=== PATIENT | male | born 1960 | race African-American/Black ===

== ENCOUNTER 2019-04-03 06:25 | Emergency (ER) | payer BC ==
[~2019-04-03] VITALS: Ht 167.6 cm; Wt 85.7 kg
[~2019-04-03 06:25] MED LIST: HYDR-2761 PO
[2019-04-03] MEDS ORDERED: LABETALOL 20 MG/4 ML DISP.SYRIN. IVP ONE (07:45)
[2019-04-03 07:58] LABS: BASO % 1 % (0-3); EOS # 0.1 x10^3/uL (0.0-0.7); EOS % 2 % (0-3); HEMOGLOBIN 14.3 g/dL (13.0-17.5); LYMPH # 0.8 x10^3/uL (1.0-4.8); LYMPH % 15 % (24-48); MEAN CORPUSCULAR HEMOGLOBIN 33 pg (25-35); MEAN CORPUSCULAR HGB CONC 34 g/dL (31-37); MEAN CORPUSCULAR VOLUME 95 fL (79-100); MONO # 0.5 x10^3/uL (0.0-1.1); MONO % 10 % (0-9); NEUT # 3.6 x10^3uL (1.8-7.7); NEUT % 72 % (31-73); PLATELET COUNT 173 x10^3/uL (140-400); RED BLOOD COUNT 4.41 x10^6/uL (4.30-5.70); RED CELL DISTRIBUTION WIDTH 14.3 % (11.5-14.5)
[2019-04-03 08:15] LABS: CALCIUM 8.4 mg/dL (8.5-10.1); GFR 92.5
[2019-04-03] MEDS ORDERED: LIDOCAINE 2% 20 ML VIAL. IJ ONE (08:15)
[2019-04-03] MEDS ORDERED: COLC0.6T34 PO (08:22)
--- NOTE | 2019-04-03 08:22 | PHYS DOC ---
Past Medical History Past Medical History: Hypertension, Other Additional Past Medical Histor: heavy drinker Past Surgical History: Other Additional Past Surgical Histo: L knee sx Alcohol Use: Occasionally Drug Use: None Adult General Chief Complaint Chief Complaint: ANKLE PROBLEM HPI HPI 58-year-old male presenting to the emergency pertinent today with right ankle pain primarily. He states he does have bilateral ankle pain but his primary complaint is the right ankle. He has a history of gout and reports this is similar to his previous gout flares. The pain is sharp shooting pain that is worse with walking. Review of systems is negative for chest pain shortness of breath abdominal pain nausea or vomiting. All other review of systems is negative. ED course: 88-year-old male presenting the emergency pertinent today with right ankle pain with history of gout. On examination he has mild pain with passive range of motion of the right ankle. It is mildly warm to touch with mild erythema around the ankle. I had a long risk-benefit discussion with the patient about arthrocentesis to exclude septic arthritis from the differential. He would like to proceed with arthrocentesis. The procedure was performed however unfortunately were unable to get fluid off of the joint to analyze synovial fluid. Given his history of gout and the appearance of the wound it is more consistent with gout and septic arthritis. We will give him colchicine and have him follow up with his doctor in 1-2 days. He is to return to the emergency department with the development of a fever or worsening pain or redness in the joint. Of note he also had a significantly elevated blood pressure in the emergency department. He is asymptomatic from his blood pressure otherwise. Initially was 220 systolic then 210 after repeat check. We give the patient IV labetalol and her some basic labs. final bp was mid 190 systolic range. Blood work shows normal CBC. Chemistry panel shows mildly elevated bilirubin otherwise unremarkable. Current Medications Current Medications Current Medications Medications (Trade) Dose Ordered Sig/Brayan Start Time Stop Time Status Last Admin Dose Admin Labetalol HCl (Normodyne Iv Push) 10 mg 1X ONCE 04/03/19 07:45 04/03/19 07:46 DC 04/03/19 08:19 10 MG Lidocaine HCl 10 ml 1X ONCE 04/03/19 08:15 04/03/19 08:16 DC 04/03/19 07:56 10 ML Allergies Allergies Allergies Coded Allergies Type Severity Reaction Last Updated Verified No Known Drug Allergies 01/13/15 No Physical Exam Physical Exam Constitutional: Well developed, well nourished, no acute distress, non-toxic appearance. [] HENT: Normocephalic, atraumatic, bilateral external ears normal, oropharynx moist, no oral exudates, nose normal. [] Eyes: PERRLA, EOMI, conjunctiva normal, no discharge. [] Neck: Normal range of motion, no tenderness, supple, no stridor. [] Cardiovascular:Heart rate regular rhythm, no murmur [] Lungs & Thorax: Bilateral breath sounds clear to auscultation [] Abdomen: Bowel sounds normal, soft, no tenderness, no masses, no pulsatile masses. [] Skin: Warm, dry, no erythema, no rash. [] Back: No tenderness, no CVA tenderness. [] Extremities: The patient's right ankle joint is swollen with mild erythema with passive range of motion pain. Otherwise the knee and foot are nontender. His left ankle has mild pain with passive range of motion but is not warm to touch and not erythe matous near the joint. The extremities are neurovascularly intact. Neurologic: Alert and oriented X 3, normal motor function, normal sensory function, no focal deficits noted. [] Psychologic: Affect normal, judgement normal, mood normal. [] Current Patient Data Vital Signs Vital Signs Date Time Temp Pulse Resp B/P (MAP) Pulse Ox O2 Delivery O2 Flow Rate FiO2 04/03/19 08:19 66 205/109 04/03/19 07:07 99.0 18 95 Room Air 99.0 Lab Values Laboratory Tests Test 04/03/19 07:46 White Blood Count 5.0 x10^3/uL (4.0-11.0) Red Blood Count 4.41 x10^6/uL (4.30-5.70) Hemoglobin 14.3 g/dL (13.0-17.5) Hematocrit 42.0 % (39.0-53.0) Mean Corpuscular Volume 95 fL (79-100) Mean Corpuscular Hemoglobin 33 pg (25-35) Mean Corpuscular Hemoglobin Concent 34 g/dL (31-37) Red Cell Distribution Width 14.3 % (11.5-14.5) Platelet Count 173 x10^3/uL (140-400) Neutrophils (%) (Auto) 72 % (31-73) Lymphocytes (%) (Auto) 15 % (24-48) L Monocytes (%) (Auto) 10 % (0-9) H Eosinophils (%) (Auto) 2 % (0-3) Basophils (%) (Auto) 1 % (0-3) Neutrophils # (Auto) 3.6 x10^3uL (1.8-7.7) Lymphocytes # (Auto) 0.8 x10^3/uL (1.0-4.8) L Monocytes # (Auto) 0.5 x10^3/uL (0.0-1.1) Eosinophils # (Auto) 0.1 x10^3/uL (0.0-0.7) Basophils # (Auto) 0.0 x10^3/uL (0.0-0.2) Sodium Level 140 mmol/L (136-145) Potassium Level 3.0 mmol/L (3.5-5.1) L Chloride Level 102 mmol/L (98-107) Carbon Dioxide Level 28 mmol/L (21-32) Anion Gap 10 (6-14) Blood Urea Nitrogen 7 mg/dL (8-26) L Creatinine 1.0 mg/dL (0.7-1.3) Estimated GFR (Cockcroft-Gault) 92.5 BUN/Creatinine Ratio 7 (6-20) Glucose Level 149 mg/dL (70-99) H Calcium Level 8.4 mg/dL (8.5-10.1) L Total Bilirubin 1.7 mg/dL (0.2-1.0) H Aspartate Amino Transferase (AST) 18 U/L (15-37) Alanine Aminotransferase (ALT) 22 U/L (16-63) Alkaline Phosphatase 79 U/L (46-116) Total Protein 7.6 g/dL (6.4-8.2) Albumin 3.2 g/dL (3.4-5.0) L Albumin/Globulin Ratio 0.7 (1.0-1.7) L Laboratory Tests 04/03/19 07:46 Laboratory Tests 04/03/19 07:46 EKG EKG [] Radiology/Procedures Radiology/Procedures [] Course & Med Decision Making Course & Med Decision Making Pertinent Labs and Imaging studies reviewed. (See chart for details) [] Dragon Disclaimer Dragon Disclaimer This electronic medical record was generated, in whole or in part, using a voice recognition dictation system. Departure Departure Impression: Primary Impression: Hypertension Additional Impression: Right ankle pain Disposition: 01 HOME, SELF-CARE Condition: STABLE Referrals: NO PCP (PCP) MEAGAN VELIZ MD Patient Instructions: Ankle Pain Additional Instructions: Thank you for allowing us to participate in your care today. Return to the emergency department you have any new or worsening symptoms, or if you are concerned for any reason. Return to emergency department if you have any new or concerning symptoms including but not limited to fever, chills, nausea, vomiting, intractable pain, any new rashes, chest pain, shortness of air, uncontrolled bleeding, difficulty breathing, and/or vision loss. Return if you having worsening pain, worsening rash around the joint, or develop a fever. Follow up with your primary care physician within 1-2 days. Call your Primary Doctor tomorrow and inform them of your visit today. If you do not have a primary care provider we are happy to provide you with a list of our primary care providers contact information. This condition should be evaluated by your primary care physician and any recommended consulting services for continued management within 2 days after discharge. If at any time, you are having difficulty getting into your primary care doctor or a specialist, return to the emergency department. Scripts Colchicine (COLCRYS) 0.6 Mg Tablet 0.6 MG PO DAILY for 4 Days, #4 TAB 0 Refills Prov: NICOLÁS GONZALEZ MD 04/03/19 Problem Qualifiers NICOLÁS GONZALEZ MD Apr 03, 2019 08:22
[2019-04-03 08:26] LABS: ALBUMIN 3.2 g/dL (3.4-5.0); ALBUMIN/GLOBULIN RATIO 0.7 (1.0-1.7); TOTAL BILIRUBIN 1.7 mg/dL (0.2-1.0); TOTAL PROTEIN 7.6 g/dL (6.4-8.2)
[2019-04-03 08:56] VITALS: BP 198/115
== END 2019-04-03 08:56 | disposition home or self-care (01) ==
LOC: ER 06:25
DX: M25.571 Pain in right ankle and joints of right foot (principal); I10 Essential (primary) hypertension
CPT/HCPCS: 20600; 36415; 80053; 85025; 96374; 99284; J2001; J3490

== ENCOUNTER 2019-10-22 18:05 | Emergency (ER) | payer BC ==
[~2019-10-22] VITALS: Ht 167.6 cm; Wt 86.2 kg
[~2019-10-22 18:05] MED LIST changes: +COLC0.6T34 PO
--- NOTE | 2019-10-22 19:04 | PHYS DOC ---
Past Medical History Past Medical History: Hypertension, Other Additional Past Medical Histor: heavy drinker Past Surgical History: Other Additional Past Surgical Histo: L knee sx Alcohol Use: Occasionally Drug Use: None Adult General Chief Complaint Chief Complaint: HYPERTENSION HPI HPI 59-year-old male presents to the emergency department with complaints of elevated blood pressure. Patient has a history of hypertension however has been off medication for approximately 1 year. He was seen one week ago by his primary care physician started upon medications at that time including lisinopril, hydrochlorothiazide patient was planned for dental work however given his blood pressure elevation they sent him to the emergency department for further evaluation. Patient's primary care physician was contacted by the family prior to arrival. Patient denies any chest pain, shortness of breath, nausea, vomiting, headache or visual change. Review of Systems Review of Systems Constitutional: Denies fever or chills [] Respiratory: Denies cough or shortness of breath [] Cardiovascular: No additional information not addressed in HPI [] GI: Denies abdominal pain, nausea, vomiting, bloody stools or diarrhea [] Musculoskeletal: Denies back pain or joint pain [] Integument: Denies rash or skin lesions [] Neurologic: Denies headache, focal weakness or sensory changes [] All other systems were reviewed and found to be within normal limits, except as documented in this note. Current Medications Current Medications Current Medications Medications (Trade) Dose Ordered Sig/Brayan Start Time Stop Time Status Last Admin Dose Admin Clonidine HCl (Catapres) 0.2 mg 1X ONCE 10/22/19 20:00 10/22/19 20:01 DC 10/22/19 20:03 0.2 MG Labetalol HCl (Normodyne Iv Push) 10 mg 1X ONCE 10/22/19 19:15 10/22/19 19:16 DC 10/22/19 19:31 10 MG Allergies Allergies Allergies Coded Allergies Type Severity Reaction Last Updated Verified No Known Drug Allergies 01/13/15 No Physical Exam Physical Exam Constitutional: Well developed, well nourished, no acute distress, non-toxic appearance. [] HENT: Normocephalic, atraumatic, bilateral external ears normal, oropharynx moist, no oral exudates, nose normal. [] Cardiovascular:Heart rate regular rhythm, no murmur [] Lungs & Thorax: Bilateral breath sounds clear to auscultation [] Abdomen: Bowel sounds normal, soft, no tenderness, no masses, no pulsatile masses. [] Skin: Warm, dry, no erythema, no rash. [] Back: No tenderness, no CVA tenderness. [] Extremities: No tenderness, no edema. [] Neurologic: Alert and oriented X 3, no focal deficits noted. [] Psychologic: Affect normal, judgement normal, mood normal. [] Current Patient Data Vital Signs Vital Signs Date Time Temp Pulse Resp B/P (MAP) Pulse Ox O2 Delivery O2 Flow Rate FiO2 10/22/19 20:03 70 190/115 10/22/19 18:35 98.2 14 98 Room Air 98.2 Lab Values Laboratory Tests Test 10/22/19 19:00 White Blood Count 4.9 x10^3/uL (4.0-11.0) Red Blood Count 5.06 x10^6/uL (4.30-5.70) Hemoglobin 15.9 g/dL (13.0-17.5) Hematocrit 46.4 % (39.0-53.0) Mean Corpuscular Volume 92 fL (79-100) Mean Corpuscular Hemoglobin 31 pg (25-35) Mean Corpuscular Hemoglobin Concent 34 g/dL (31-37) Red Cell Distribution Width 13.3 % (11.5-14.5) Platelet Count 217 x10^3/uL (140-400) Neutrophils (%) (Auto) 61 % (31-73) Lymphocytes (%) (Auto) 20 % (24-48) L Monocytes (%) (Auto) 12 % (0-9) H Eosinophils (%) (Auto) 7 % (0-3) H Basophils (%) (Auto) 1 % (0-3) Neutrophils # (Auto) 3.0 x10^3/uL (1.8-7.7) Lymphocytes # (Auto) 1.0 x10^3/uL (1.0-4.8) Monocytes # (Auto) 0.6 x10^3/uL (0.0-1.1) Eosinophils # (Auto) 0.3 x10^3/uL (0.0-0.7) Basophils # (Auto) 0.0 x10^3/uL (0.0-0.2) Sodium Level 139 mmol/L (136-145) Potassium Level 3.6 mmol/L (3.5-5.1) Chloride Level 99 mmol/L (98-107) Carbon Dioxide Level 35 mmol/L (21-32) H Anion Gap 5 (6-14) L Blood Urea Nitrogen 17 mg/dL (8-26) Creatinine 1.1 mg/dL (0.7-1.3) Estimated GFR (Cockcroft-Gault) 82.6 BUN/Creatinine Ratio 15 (6-20) Glucose Level 97 mg/dL (70-99) Calcium Level 8.7 mg/dL (8.5-10.1) Magnesium Level 1.8 mg/dL (1.8-2.4) Total Bilirubin 0.6 mg/dL (0.2-1.0) Aspartate Amino Transferase (AST) 13 U/L (15-37) L Alanine Aminotransferase (ALT) 17 U/L (16-63) Alkaline Phosphatase 58 U/L (46-116) Total Protein 7.4 g/dL (6.4-8.2) Albumin 3.6 g/dL (3.4-5.0) Albumin/Globulin Ratio 0.9 (1.0-1.7) L Laboratory Tests 10/22/19 19:00 Laboratory Tests 10/22/19 19:00 EKG EKG [] Radiology/Procedures Radiology/Procedures [] Course & Med Decision Making Course & Med Decision Making Pertinent Labs and Imaging studies reviewed. (See chart for details) []59-year-old male presents to the emergency department with complaints of elevated blood pressure. Patient has a history of hypertension however has been off medication for approximately 1 year. He was seen one week ago by his primary care physician started upon medications at that time including lisinopril, hydrochlorothiazide patient was planned for dental work however given his blood pressure elevation they sent him to the emergency department for further evaluation. Patient's primary care physician was contacted by the family prior to arrival. Patient denies any chest pain, shortness of breath, nausea, vomiting, headache or visual change. Labs reviewed Patient given 10mg Labetalol IV with some improvement of BP Clonidine 0.2mg po x 1 given BP remains 190/115 Repeat BP 184/103 Recommend dc home - clonidine rx provided for SBP > 200/DBP > 100 Dragon Disclaimer Dragon Disclaimer This electronic medical record was generated, in whole or in part, using a voice recognition dictation system. Departure Departure Impression: Primary Impression: Accelerated hypertension Disposition: 01 HOME, SELF-CARE Condition: IMPROVED Referrals: TRACEY VALLEJO PA-C (PCP) Patient Instructions: Hypertension Additional Instructions: Recommend follow up with PCP 3 - 5 days Return to the ER with worsening symptoms, intractable pain, fever, altered mental status Tylenol/Motrin as needed for pain Rx provided for clonidine 0.1mg (take as directed on prescription) Scripts Clonidine Hcl (CLONIDINE HCL) 0.1 Mg Tablet 0.1 MG PO DAILY PRN for ELEVATED BP, SEE COMMENTS, #10 TAB Take 0.1mg tablet for systolic BP > 200 and or diastolic BP > 100 Prov: JOSLYN VEGA MD 10/22/19 JOSLYN VEGA MD Oct 22, 2019 19:04
[2019-10-22 19:18] LABS: BASO % 1 % (0-3); EOS # 0.3 x10^3/uL (0.0-0.7); EOS % 7 % (0-3); HEMATOCRIT 46.4 % (39.0-53.0); HEMOGLOBIN 15.9 g/dL (13.0-17.5); LYMPH % 20 % (24-48); MEAN CORPUSCULAR HEMOGLOBIN 31 pg (25-35); MEAN CORPUSCULAR HGB CONC 34 g/dL (31-37); MEAN CORPUSCULAR VOLUME 92 fL (79-100); MONO # 0.6 x10^3/uL (0.0-1.1); MONO % 12 % (0-9); NEUT % 61 % (31-73); PLATELET COUNT 217 x10^3/uL (140-400); RED BLOOD COUNT 5.06 x10^6/uL (4.30-5.70); RED CELL DISTRIBUTION WIDTH 13.3 % (11.5-14.5); WHITE BLOOD COUNT 4.9 x10^3/uL (4.0-11.0)
[2019-10-22] MEDS: LABETALOL 20 MG/4 ML DISP.SYRIN. IVP ONE (19:31)
[2019-10-22 19:34] LABS: CALCIUM 8.7 mg/dL (8.5-10.1); CREATININE 1.1 mg/dL (0.7-1.3); GFR 82.6; POTASSIUM 3.6 mmol/L (3.5-5.1)
[2019-10-22 19:39] LABS: ALBUMIN 3.6 g/dL (3.4-5.0); ALBUMIN/GLOBULIN RATIO 0.9 (1.0-1.7); MAGNESIUM 1.8 mg/dL (1.8-2.4); TOTAL BILIRUBIN 0.6 mg/dL (0.2-1.0); TOTAL PROTEIN 7.4 g/dL (6.4-8.2)
[2019-10-22] MEDS: cloNIDine HCL 0.1 MG TABLET PO ONE (20:03)
[2019-10-22] MEDS ORDERED: CLON0.1T PO (20:23)
[2019-10-22 21:04] VITALS: BP 195/113
--- NOTE | 2019-10-23 06:39 | EKG ---
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
== END 2019-10-22 20:35 | disposition home or self-care (01) ==
LOC: ER 18:05
DX: I10 Essential (primary) hypertension (principal); F10.10 Alcohol abuse, uncomplicated; Z98.890 Other specified postprocedural states
CPT/HCPCS: 36415; 80053; 83735; 85025; 93005; 96374; 99285; J3490

== ENCOUNTER → 2020-09-12 | Outpatient (CLI) | payer BC ==
[~2020-09-12] MED LIST changes: +CLON0.1T PO; +LISI-334 PO
[2020-09-12 09:33] LABS: BASO # 0.1 x10^3/uL (0.0-0.2); BASO % 3 % (0-3); EOS # 0.2 x10^3/uL (0.0-0.7); EOS % 6 % (0-3); HEMATOCRIT 37.7 % (39.0-53.0); HEMOGLOBIN 12.7 g/dL (13.0-17.5); LYMPH # 1.3 x10^3/uL (1.0-4.8); LYMPH % 38 % (24-48); MEAN CORPUSCULAR HEMOGLOBIN 33 pg (25-35); MEAN CORPUSCULAR HGB CONC 34 g/dL (31-37); MEAN CORPUSCULAR VOLUME 97 fL (79-100); MONO # 0.4 x10^3/uL (0.0-1.1); MONO % 12 % (0-9); NEUT # 1.4 x10^3/uL (1.8-7.7); NEUT % 42 % (31-73); PLATELET COUNT 186 x10^3/uL (140-400); RED BLOOD COUNT 3.87 x10^6/uL (4.30-5.70); RED CELL DISTRIBUTION WIDTH 14.7 % (11.5-14.5); WHITE BLOOD COUNT 3.3 x10^3/uL (4.0-11.0)
[2020-09-12 09:42] LABS: PROTHROMBIN TIME PATIENT 13.9 SEC (11.7-14.0)
[2020-09-12 09:53] LABS: ALBUMIN 3.4 g/dL (3.4-5.0); C-REACTIVE PROTEIN 1.1 mg/L (0-3.3); CALCIUM 8.5 mg/dL (8.5-10.1); CREATININE 1.8 mg/dL (0.7-1.3); GFR 46.8; POTASSIUM 3.8 mmol/L (3.5-5.1)
--- NOTE | 2020-09-12 13:22 | RAD ---
EXAM: Chest, 2 views. HISTORY: Preoperative evaluation. Hypertension. COMPARISON: None. FINDINGS: 2 views of the chest are obtained. There is no infiltrate, pleural effusion or pneumothorax. The heart is upper normal in size. IMPRESSION: No acute pulmonary finding. Electronically signed by: Shonda James MD (09/12/2020 1:18 PM) [facility]
[2020-09-13 01:10] LABS: HEMOGLOBIN A1C 5.1 % (4.8-5.6)
== END ==
LOC: SURGPAT 12:40
PROVIDERS: ATTEND Orthopaedic Surgery
DX: Z01.812 Encounter for preprocedural laboratory examination (principal); M17.11 Unilateral primary osteoarthritis, right knee; I10 Essential (primary) hypertension; Z96.611 Presence of right artificial shoulder joint
CPT/HCPCS: 36415; 71046; 80048; 82040; 82306; 83036; 85025; 85610; 85730; 86140; 87641

== ENCOUNTER 2020-09-26 06:39 | Observation (INO) | payer BC ==
--- NOTE | 2020-09-25 18:48 | PDOC1 ---
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 Tried cortisone injections, chiropractic, and oral medications. Daily symptoms which affect his quality of life. Past Medical History Cardiovascular: HTN Rheumatologic: Gout Past Surgical History Past Surgical History: Other (left knee surgery 1960s) Family History Family History parents and brother with diabetes Family History: Diabetes Social History Smoke: No ALCOHOL: occassional Current Medications Current Medications Current Medications Ondansetron HCl (Zofran) 4 mg PRN Q6HRS PRN IV NAUSEA/VOMITING; Start 09/26/20 at 07:00; Stop 09/27/20 at 06:59 Fentanyl Citrate (Fentanyl 2ml Vial) 25 mcg PRN Q5MIN PRN IV MILD PAIN 1-3; Start 09/26/20 at 07:00; Stop 09/27/20 at 06:59 Fentanyl Citrate (Fentanyl 2ml Vial) 50 mcg PRN Q5MIN PRN IV MODERATE TO SEVERE PAIN; Start 09/26/20 at 07:00; Stop 09/27/20 at 06:59 Morphine Sulfate (Morphine Sulfate) 1 mg PRN Q10MIN PRN IV SEVERE PAIN 7-10; Start 09/26/20 at 07:00; Stop 09/27/20 at 06:59 Ringer's Solution 1,000 ml @ 30 mls/hr Q24H IV ; Start 09/26/20 at 07:00; Stop 09/26/20 at 18:59 Lidocaine HCl (Xylocaine-Mpf 1% 2ml Vial) 2 ml PRN 1X PRN ID PRIOR TO IV START; Start 09/26/20 at 07:00; Stop 09/27/20 at 06:59 Hydromorphone HCl (Dilaudid) 0.5 mg PRN Q10MIN PRN IV SEV PAIN, Second choice; Start 09/26/20 at 07:00; Stop 09/27/20 at 06:59 Prochlorperazine Edisylate (Compazine) 5 mg PACU PRN PRN IV NAUSEA, MRX1; Start 09/26/20 at 07:00; Stop 09/27/20 at 06:59 Aspirin (Deb Aspirin) 325 mg BID PO ; Start 09/26/20 at 21:00 Acetaminophen (Tylenol) 1,000 mg 1X PREOP PRN PO PRIOR TO PROCEDURE; Start 09/26/20 at 06:00; Stop 09/26/20 at 18:00 Cefazolin Sodium/ Dextrose 50 ml @ 100 mls/hr 1X PREOP PRN IV PRIOR TO PROCEDURE; Start 09/26/20 at 06:00; Stop 09/26/20 at 18:00 Morphine Sulfate 5 mg/Ketorolac Tromethamine 30 mg/Ropivacaine 60 ml/Epinephrine HCl 0.5 mg/Sodium Chloride 100 ml @ 100 mls/hr 1X PERIOP ONCE INT ART ; Start 09/26/20 at 06:00; Stop 09/26/20 at 06:59 Tranexamic Acid 1000 mg/Sodium Chloride 60 ml @ 60 mls/hr 1X PERIOP ONCE INJ ; Start 09/26/20 at 06:00; Stop 09/26/20 at 06:59 Tranexamic Acid 1000 mg/Sodium Chloride 60 ml @ 60 mls/hr 1X PERIOP ONCE INJ ; Start 09/26/20 at 08:00; Stop 09/26/20 at 08:59 Celecoxib (CeleBREX) 400 mg 1X PREOP PRN PO PRIOR TO SURGERY; Start 09/26/20 at 08:00 Active Scripts Active Clonidine Hcl 0.1 Mg Tablet 0.1 Mg PO DAILY PRN Take 0.1mg tablet for systolic BP > 200 and or diastolic BP > 100 Colcrys (Colchicine) 0.6 Mg Tablet 0.6 Mg PO DAILY 4 Days Hydrocodone-Apap 5-325 (Hydrocodone Bit/Acetaminophen) 1 Each Tablet 1-2 Tab PO Q4-6HRS PRN Reported Lisinopril 20 Mg Tablet 20 Mg PO DAILY Allergies Allergies: Coded Allergies: No Known Drug Allergies (Unverified , 01/13/15) Physical Exam General: Alert, Cooperative HEENT: Atraumatic Lungs: Normal air movement Heart: RRR Abdomen: Soft Extremities: Other (RIGHT knee exam: Profound patellofemoral crepitus on exam with focal tenderness. ) Neuro: Normal speech, Sensation intact Images Images PATIENT: CAPO SILVERIOCCOUNT: [id number] : 1960 LOCATION: [facility] AGE: 59 SEX: M EXAM STATUS: PRE CLI ORD. PHYSICIAN: MISHA MONET MD REASON: RIGHT KNEE PAIN PROCEDURE: KNEE RIGHT 2V KNEE STANDING BILAT AP, KNEE RIGHT 2V 06/23/2020 12:00 AM INDICATION: Right knee pain COMPARISON: Right knee radiograph 09/12/2016 TECHNIQUE: 3 views the right knee including standing comparison view of the left knee is provided. FINDINGS/ IMPRESSION: There is moderate to advanced medial femorotibial joint space narrowing involving the right knee with subcortical sclerosis and mild marginal osteophytosis compatible with moderate osteoarthrosis. I lateral femorotibial joint space narrowing is identified marginal osteophytosis compatible with mild osteoarthrosis of the lateral femorotibial compartment. There is moderate patellofemoral joint space narrowing with small knee joint effusion. No acute fracture or dislocation. Vascular calcification are identified. There is mild to moderate medial femorotibial joint space narrowing involving the left knee compatible with mild to moderate osteoarthrosis. There is osseous excrescence involving the medial aspect of the distal left femoral diaphysis measuring 1.4 x 1.8 cm which may represent osteochondroma. If there is any pain localized to this region, further characterization with MRI may be of benefit. Electronically signed by: Magaly Lewis MD (06/23/2020 11:15 AM) [id number] DICTATED and SIGNED BY: MAGALY LEWIS MD DATE: 06/23/20 1115 VTE Prophylaxis Ordered VTE Prophylaxis Devices: Yes VTE Pharmacological Prophylaxi: Yes Assessment/Plan Assessment/Plan He has osteoarthritis of his right knee. We reviewed his previous x-rays together and discussed the natural history of the condition as well as the risks, benefits, and alternatives to treatment. Given his failure of nonoperative treatments and continued pain with loss of function, my recommendation is surgery. Plan for right total knee arthroplasty. We discussed the potential risks of infection, neurovascular injury, fracture, bleeding, blood clots, malalignment, need for revision surgery, or other potential surgical or anesthetic complications. I recommended the robotic NAVIO instrumentation and we discussed my reasoning. We also discussed postoperative treatment and expectations including dental antibiotic prophylaxis and residual numbness over the knee. All of his questions were answered and he desires to proceed with total knee replacement. He is here today for elective total knee arthroplasty. Justifications for Admission Other Justification MISHA MONET MD Sep 25, 2020 18:48
[~2020-09-26] VITALS: Ht 167.6 cm; Wt 83.0 kg
[2020-09-26] VITALS (9 sets, daily range): BP systolic 131–155; BP diastolic 82–98
[~2020-09-26 06:39] MED LIST changes: +ACETAMINOPHEN 500 MG TABLET PO PRN; +TRANEXAMIC ACID 1,000 MG in IV NS 50ML -- 1ST BAG INJ ONE; +TV=100ml MORPHINE 5 MG, KETOROLAC 30 MG, ROPIVacaine 0.5% PF 60 ML, EPINEPH... INT ART ONE
[2020-09-26] MEDS ORDERED: fentaNYL PF VIAL 100 MCG/2 ML VIAL IV PRN (07:00)
[2020-09-26] MEDS ORDERED: MORPHINE SULFATE 2 MG/ML VIAL. IV PRN (07:00)
[2020-09-26] MEDS ORDERED: LIDOCAINE 1% PF 2 ML VIAL. ID PRN (07:00)
[2020-09-26] MEDS ORDERED: PROCHLORPERAZINE 10 MG/2 ML VIAL. IV PRN (07:00)
[2020-09-26] MEDS ORDERED: IV RINGERS,LACTATED 1000ML 1,000 ML IV SCH (07:00)
[2020-09-26] MEDS ORDERED: HYDROmorphone 2 MG/ML VIAL IV PRN (07:00)
[2020-09-26] MEDS ORDERED: ONDANSETRON PF 4 MG/2 ML VIAL. IV PRN (07:00)
[2020-09-26] MEDS ORDERED: VANCOMYCIN 1 GM VIAL. ONE ×2 (07:31→07:32)
[2020-09-26] MEDS ORDERED: TOBRAMYCIN POWDER 1.2 GM VIAL. ONE (07:32)
[2020-09-26] MEDS ORDERED: TRANEXAMIC ACID 1,000 MG in IV NS 50ML -- 2ND BAG INJ ONE (08:00)
[2020-09-26] MEDS ORDERED: CELECOXIB 100 MG CAPSULE. PO PRN (08:00)
[2020-09-26] MEDS ORDERED: ROCURONIUM 50 MG/5 ML VIAL. ONE (09:09)
[2020-09-26] MEDS ORDERED: MIDAZOLAM HCL/PF 2 MG/2 ML VIAL. ONE (09:10)
[2020-09-26] MEDS ORDERED: fentaNYL PF VIAL 250 MCG/5 ML VIAL ONE (09:10)
[2020-09-26] MEDS ORDERED: ONDANSETRON PF 4 MG/2 ML VIAL. ONE (09:47)
[2020-09-26] MEDS ORDERED: LIDOCAINE 2% PF 5 ML VIAL. ONE (09:47)
[2020-09-26] MEDS ORDERED: PROPOFOL 10 MG/ML (20ML) VIAL. IV ONE (09:47)
[2020-09-26] MEDS ORDERED: DEXAMETHASONE SOD PHOS 4 MG/ML VIAL ONE (09:47)
[2020-09-26] MEDS ORDERED: SEVOFLURANE > 120 MINUTES. IH ONE (09:47)
[2020-09-26] MEDS ORDERED: METOPROLOL TARTRATE 5 MG/5 ML VIAL. IVP ONE (10:25)
[2020-09-26] MEDS ORDERED: hydrALAZINE 20 MG/ML VIAL. ONE (10:44)
[2020-09-26] MEDS ORDERED: NEOSTIGMINE METHYLSULFATE 5 MG/5 ML SYRINGE. ONE (11:34)
[2020-09-26] MEDS ORDERED: GLYCOPYRROLATE 1 MG/5 ML VIAL. ONE (11:34)
--- NOTE | 2020-09-26 12:01 | PDOC4 ---
Operative Note Operative Note Date of Procedure: September 26, 2020 Pre-Op Diagnosis: Unilateral primary osteoarthritis, right knee. M17.11 Post-Op Diagnosis: same Procedure: right total knee arthroplasty with patella resurfacing, robotic assisted, CPT 81052 Surgeon: Misha Jamison MD Customer Engagement Manager: Brenden Mcgovern Anesthesia: General EBL: 200 mL Specimens Obtained: right knee bone and soft tissue Complications: none Drains: Hemovac plus pain catheter Tourniquet time: 68 Minutes Tourniquet Pressure: 300 mm Hg Indications for Procedure: Knee arthritis pain, affecting quality of life, unrelieved by nonoperative management Findings: Severe osteoarthritis with bone on bone contact in all three compartments. In addition, there was extensive synovitis and fine white crystalline deposition throughout. 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 I did an extensive synovectomy of abundant inflamed abnormal synovium. A medial release was required, but the inflammatory situation made the ligaments friable, and I used constrained polyethylene as a result. The cut bone surfaces and the areas of synovial resection had more intraoperative bleeding than is typical. I used Bovie electrocautery for hemostasis. The bone bleeding was mostly covered intraoperatively with cement and implants which controlled the bone bleeding. Implants: Dubose & Nephew Journey II Total Knee System, Size 6 right bicruciate stabilized Journey II BCS Oxinium femoral component, size 5 right Journey nonporous tibial baseplate, size 5-6 15 mm right Journey II BCS constrained articular insert, 32 mm oval Ashanti II resurfacing patellar component Procedure in Detail: The patient was identified in the preoperative holding area, and the correct right lower extremity was marked by me. The patient was taken to the operating room where the patient was anesthetized by the Department of Anesthesia. Preoperative antibiotics were given intravenously. Tranexamic acid 1 g was given intravenously for intraoperative hemostasis. A "time-out" procedure was performed. The patient was positioned supine on the operative table with a tourniquet on the upper right thigh. A right hip bump and heel bump were attached to the operating table for later intraoperative positioning. The right lower limb was thoroughly scrubbed, then sterile Chloraprep solution was appli ed, and the limb was draped in sterile fashion. The operating team wore exhaust ventilated hoods with AirCast Mobile Personal Protection Toga Zippered Peel- Away protection system. An impervious stockinet and an adhesive drape were used such that the skin was entirely covered. The limb was exsanguinated with an Esmarch bandage, and the tourniquet was inflated. A midline skin incision was made with a scalpel using the patella and tibial tubercle as landmarks. Electrocautery was used for hemostasis. My lead recreation assistant used rake retractors and a laparotomy sponge. A medial parapatellar arthrotomy incision was used with extension into the d istal quadriceps tendon. A large effusion was noted. This was benign-appearing transparent synovial fluid. There was extensive proliferative synovitis, with hypertrophic synovium throughout the suprapatellar pouch medial and lateral gutters. This abnormal and proliferative synovium was excised with Bovie electrocautery. There was a fine crystalline deposits throughout the joint, attached to the articular surfaces, likely gout or calcium pyrophosphate crystals. The patella was retracted laterally and Hohmann retractors were now used by my lead recreation assistant. Excess synovium, the menisci, and the cruciate ligaments were resected sharply. A periarticular multimodal ropivacaine anesthetic injection was used in the suprapatellar pouch and distal quadriceps muscle. The patella was everted and exposed. The patella thickness was measured with a caliper, and then cut freehand with a saw, using caliper measurements to assess the resection. The lateral retinaculum was partially released from the lateral patella using electrocautery. Rongeurs were used to make sure there were no remaining exposed patellar osteophytes medially or laterally. The patella was sized, and then drilled for an oval three-peg patella component. The tibial tracker array for the NAVIO system was applied to the tibial crest four finger breadths below the tibial tubercle, using percutaneous incisions and bicortical pins. The femoral tracker array was applied outside of the original incision using two separate stab incisions using bicortical pins. Checkpoint verification pins were applied to the femur and tibia. Using the point probe, the medial and lateral malleoli were localized and the locations were stored. The center of the tibia was noted at the anterior cruciate ligament insertion and stored. The center of the femur was marked at the intersection of Whitesidess line with the transepicondylar axis. The hip center calculation was performed with range of motion of the hip. The femur neutral position was identified, and simulated weightbearing was performed with axial compression on the foot. Range of motion without stress was performed and the data collected. Range of motion with valgus stress, and range of motion with varus stress data collection was also performed. Rotational references include the Whitesidess line, and the trans-epicondylar axis. The femoral articular surface was now mapped in 3 dimensions using the point probe and digital data collected. The tibial condyle articular surfaces and cortical edges were mapped in 3 dimensions using the point probe including the medial and lateral tibial plateau. Implant planning was now performed on-screen with manipulation of the implant sizes, cut thicknesses and gaps, component rotation, component flexion/extension and component varus/valgus until satisfactory ligament balance, alignment and stability of the knee was expected throughout the range of motion. A medial release was required, using a 10 blade scalpel, and a Kohler elevator to elevate the medial structures from the upper medial tibia. My lead recreation assistant held a Hohmann retractor, a medial Z-retractor, and an [place] Hook retractor to protect the medial and lateral collateral ligaments, the patellar tendon, the skin and the other soft tissues. The point probe was used to confirm the location of the checkpoint verification pins. The distal femoral surface was now prepared using the Anspach joanne with footpedal, and the NAVIO handpiece for bone removal to the previously planned distal femoral resection. The crosshairs at the pin locations were marked by using a mallet and the point probe for definitive location. A 5-in-1 Journey II cutting guide was then applied and the position was checked with the virtual yohan wing from the NAVIO to ensure proper placement as the pins were applied. The posterior, anterior, and all chamfer cuts were made with the oscillating saw. Excess bone was removed with an osteotome and ro ngeurs. The tibial cutting guide was applied, positioned using the NAVIO virtual yohan wing, and secured to the upper tibia using three pins at the previously planned location. The virtual yohan wing was used to confirm the resection depth, slope and coronal alignment. The upper tibia was cut made with an oscillating saw. My lead recreation assistant held Hohmann retractors and a posterior cruciate ligament retractor to protect the medial and lateral collateral ligaments, the patellar tendon, the skin, the peroneal nerve and the other soft tissues. The upper tibia was sized with a trial baseplate. The posterior compartment was cleared of osteophytes and loose bodies. The periarticular anesthetic injection was used in the posterior compartment. The box cut for a posterior stabilized component was made. A preliminary reduction was performed with a trial femur, trial tibial baseplate and trial polyethylene. The NAVIO system was used to confirm range of motion, and postoperative stressed gap assessment. The stability was assessed using different thicknesses of tibial articular surface to find satisfactory stability and good range of motion. The rotation of the tibial component was marked on the upper tibia. Final trial reduction was now performed verifying patella tracking and tibiofemoral stability and alignment. The bone pins and tracker arrays were removed, and the checkpoint verification pins were removed. The tibia preparation was completed with a drill, saw, and fin punch at the previously noted rotation. The final implants were verified and opened. Outer gloves were changed by the operating team. Betadine lavage was used. The bone cuts were irrigated with saline using the [email or web address] InterPulse device and then dried with suction and laparotomy sponges. Two packages of Dubose + Nephew Rally HV bone cement were mixed in powdered form with Vancomycin 1gm and Tobramycin 1.2 gm, and then vacuum-mixed with the monomer, and placed into a cement gun. The cut surfaces of the bone were thoroughly dried with suction and with laparotomy sponges for cement interdigitation. The final components were cemented into place. The knee was kept at full extension while the cement hardened, and excess cement was removed. Tranexamic acid 1 g was redosed intravenously for additional intraoperative hemostasis. The tourniquet was released, and electrocautery was used for hemostasis. A final periarticular anesthetic injection was used for pain relief. The bone pin sites on the tibial crest were closed with #3-0 Nylon sutures. A final check of [id number] and stability was made, and the polyethylene implant final size was chosen. The polyethylene implant was secured to the tibial baseplate, and the knee was reduced a final time and range of motion and stability was confirmed. Thorough irrigation was used. A pain catheter, and a 10 Fr Hemovac were inserted. Topical Vancomycin 1 gm was used during the closure. The arthrotomy was closed with interrupted [id number] #1 Vicryl suture. The subcutaneous tissues were approximated initially with #2-0 Vicryl inverted interrupted sutures by my lead recreation assistant. Next the subcuticular layer was approximated in a running fashion with #3-0 STRATAFIX suture by my lead recreation assistant. The skin incision was then covered and reinforced by my lead recreation assistant with Acticoat, followed by a ALEJA single use negative pressure wound therapy dressing Soft roll and an Obdulio wrap were applied. Needle and sponge counts were correct. There were no apparent complications. The patient returned to the recovery room in stable condition. MISHA JAMISON MD Sep 26, 2020 12:01
[2020-09-26] MEDS ORDERED: 0.9 % SODIUM CHLORIDE 10 ML DISP.SYRIN. IV PRN (12:15)
[2020-09-26] MEDS ORDERED: cloNIDine HCL 0.1 MG TABLET PO PRN (12:15)
[2020-09-26] MEDS ORDERED: DEXTROSE 50% 25 GM / 50ML DISP.SYRIN. IV PRN (12:15)
[2020-09-26] MEDS ORDERED: MORPHINE SULFATE 4 MG/ML VIAL. IVP PRN (12:15)
[2020-09-26] MEDS ORDERED: PROCHLORPERAZINE 5 MG TABLET. PO PRN (12:15)
[2020-09-26] MEDS ORDERED: fentaNYL PF VIAL 100 MCG/2 ML VIAL IVP PRN (12:15)
[2020-09-26] MEDS ORDERED: ZOLPIDEM 5 MG TABLET. PO PRN (12:15)
[2020-09-26] MEDS ORDERED: CALCIUM CARBONATE 500 MG TAB.CHEW PO PRN (12:15)
[2020-09-26] MEDS ORDERED: diphenhydrAMINE 50 MG/ML VIAL IVP PRN (12:15)
[2020-09-26] MEDS ORDERED: METOCLOPRAMIDE HCL 10 MG/2 ML VIAL. IVP PRN (12:15)
--- NOTE | 2020-09-26 12:39 | RAD ---
Two-view right knee dated 09/26/2020. No comparison available. Clinical data indication: Post knee arthroplasty. FINDINGS: 2 views right knee show interval total neoplastic. Femoral and tibial components are intact . No periprosthetic fracture or malalignment. Diffuse soft tissue swelling and soft tissue gas with s uprapatellar drain in place. IMPRESSION: Status post right knee arthroplasty. Electronically signed by: Lobito Gupta MD (09/26/2020 12:37 PM) [id number]
[2020-09-26] MEDS: fentaNYL PF VIAL 100 MCG/2 ML VIAL IV PRN ×2 (12:58→13:09)
--- NOTE | 2020-09-26 14:32 | NUR ---
Rec'd from PACU per bed, alert/drowsy, dressing to RLE clean, dry & intact, Hemovac emptied 90cc sanguinous drainage, IAC capped, states recently last week knee gave out while significant other was at work, no injuries noted, during conversation does drink alcohol almost daily, beer & pint of alcohol, but states no drink since Saturday, oriented to surroundings, call light in reach, see admission for details, has own walker, request home health at dismissal
[2020-09-26] MEDS: oxyCODONE/APAP 5/325 1 TAB TABLET PO PRN (16:13)
[2020-09-26] MEDS: ONDANSETRON ODT 4 MG TAB.RAPDIS. PO SCH ×2 (18:00→23:38)
[2020-09-26] MEDS: ONDANSETRON PF 4 MG/2 ML VIAL. IVP SCH ×2 (18:00→23:38)
--- NOTE | 2020-09-26 18:00 | NUR ---
Zofran held, no nausea or vomiting noted
[2020-09-26] MEDS: KETOROLAC 30MG VIAL 30 MG, BUPIVACAINE MPF 0.25% 20 ML, EPINEPHrine 0.5 MG in TOTAL VOL... INT ART SCH ×2 (18:27→23:38)
[2020-09-26] MEDS: ASPIRIN ENTERIC COATED 325 MG TABLET.DR. PO SCH (20:44)
[2020-09-26] MEDS: ASPIRIN 325 MG TABLET PO SCH (21:00)
--- NOTE | 2020-09-26 21:00 | NUR ---
resting in bed. IAC is found disconnected and apart. -open to air. remaining tubing from IAC removed and area cleansed. Hemovac remains patent and intact. he has good sensation, pulses an motion bilateral lower extremities
[2020-09-26] MEDS: IV NORMAL SALINE 1000ML BAG 1,000 ML IV SCH (23:04)
[2020-09-27 03:00] VITALS: BP 118/74
[2020-09-27] MEDS: oxyCODONE/APAP 5/325 1 TAB TABLET PO PRN ×5 (03:20→20:47)
[2020-09-27] MEDS ORDERED: MAGNESIUM HYDROXIDE 2,400 MG/30 ML ORAL.SUSP. PO PRN (06:00)
[2020-09-27] MEDS: ONDANSETRON ODT 4 MG TAB.RAPDIS. PO SCH ×2 (06:00→12:00)
[2020-09-27] MEDS: ONDANSETRON PF 4 MG/2 ML VIAL. IVP SCH ×2 (06:07→12:00)
[2020-09-27 07:12] VITALS: BP 121/80
[2020-09-27] MEDS: COLCHICINE 0.6 MG TABLET PO SCH (08:11)
[2020-09-27] MEDS: MULTIVITAMIN with MINERAL TABLET. PO SCH (08:11)
[2020-09-27] MEDS: SENNOSIDES/DOCUSATE 8.6/50MG TABLET. PO SCH (08:11)
[2020-09-27] MEDS: ASPIRIN ENTERIC COATED 325 MG TABLET.DR. PO SCH ×2 (08:11→20:47)
[2020-09-27] MEDS: CELECOXIB 100 MG CAPSULE. PO SCH (08:11)
[2020-09-27] MEDS: LISINOPRIL 20 MG TABLET PO SCH (08:12)
[2020-09-27] MEDS: ASPIRIN 325 MG TABLET PO SCH (08:13)
[2020-09-27] MEDS ORDERED: ONDANSETRON PF 4 MG/2 ML VIAL. IVP PRN (12:00)
[2020-09-27] MEDS ORDERED: ONDANSETRON ODT 4 MG TAB.RAPDIS. PO PRN (12:00)
[2020-09-27] MEDS: IV NORMAL SALINE 1000ML BAG 1,000 ML IV SCH (12:15)
--- NOTE | 2020-09-27 15:33 | NUR ---
OZZIE wrap removed after last therapy session. NO bleeding noted at old IAC site. Hemovac removed with a small amount of bleeding present. Foam dressing applied. ALEJA dressing CDI with no signs of bleeding noted. Swelling noted. Will monitor.
[2020-09-27] MEDS ORDERED: BISACODYL 10 MG SUPP.RECT. PR PRN (16:00)
--- NOTE | 2020-09-27 17:54 | PDOC ---
PROGRESS NOTES Date of Service DATE: 09/27/20 TIME: 17:53 Subjective Subjective Quite a bit of pain at first. Received IV pain meds to control. Objective Vital Signs Vital Signs Date Time Temp Pulse Resp B/P (MAP) Pulse Ox O2 Delivery O2 Flow Rate FiO2 09/27/20 17:43 99 Room Air 09/27/20 08:12 67 121/80 09/27/20 07:12 98.5 20 98.5 09/26/20 15:00 2.0 Physical Exam ALEJA intact and dry. Pain catheter and Hemovac have been removed. Calf soft and NT. Good AROM of foot and toes. Intact sensation distally. No sign of compartment syndrome or DVT. No blisters. Labs Laboratory Tests Test 09/26/20 07:30 09/26/20 10:36 SARS-CoV-2 Antigen (Rapid) Negative (NEGATIVE) Coronavirus (PCR) Not detected (Not Detected) Imaging Report reviewed, images independently reviewed. Satisfactory TKA without apparent complications. [facility] [address] [place] [address] IMAGING REPORT Signed PATIENT: TERI SILVERIO ACCOUNT: [id number] : 1960 LOCATION: [address] [place] [address] AGE: 59 SEX: M EXAM STATUS: ADM IN ORD. PHYSICIAN: MISHA MONET MD REASON: POST OP PROCEDURE: KNEE RIGHT 2V Two-view right knee dated 09/26/2020. No comparison available. Clinical data indication: Post knee arthroplasty. FINDINGS: 2 views right knee show interval total neoplastic. Femoral and tibial components are intact. No periprosthetic fracture or malalignment. Diffuse soft tissue swelling and soft tissue gas with suprapatellar drain in place. IMPRESSION: Status post right knee arthroplasty. Electronically signed by: Lobito Gupta MD (09/26/2020 12:37 PM) [id number] DICTATED and SIGNED BY: LOBITO GUPTA MD DATE: 09/26/20 1236 Assessment Assessment POD #1 after TKA Plan Plan of Care Continue PT. Not yet able to get out of bed without assistance. Need to watch incision for blisters. IV pain meds if necessary. Justicifation of Admission Dx: Justifications for Admission: Justification of Admission Dx: Yes MISHA MONET MD Sep 27, 2020 17:54
[2020-09-27 18:19] VITALS: BP 110/73
[2020-09-28] MEDS: oxyCODONE/APAP 5/325 1 TAB TABLET PO PRN ×3 (01:04→12:17)
[2020-09-28 06:29] VITALS: BP 111/74
[2020-09-28] MEDS: SENNOSIDES/DOCUSATE 8.6/50MG TABLET. PO SCH (08:24)
[2020-09-28] MEDS: CELECOXIB 100 MG CAPSULE. PO SCH (08:24)
[2020-09-28] MEDS: COLCHICINE 0.6 MG TABLET PO SCH (08:24)
[2020-09-28] MEDS: ASPIRIN ENTERIC COATED 325 MG TABLET.DR. PO SCH (08:25)
[2020-09-28] MEDS: LISINOPRIL 20 MG TABLET PO SCH (08:25)
[2020-09-28] MEDS: MULTIVITAMIN with MINERAL TABLET. PO SCH (08:25)
[2020-09-28 09:45] LABS: HEMATOCRIT 31.9 % (39.0-53.0); HEMOGLOBIN 10.5 g/dL (13.0-17.5)
--- NOTE | 2020-09-28 13:36 | PDOC ---
PROGRESS NOTES Date of Service DATE: 09/28/20 TIME: 13:35 Subjective Subjective Doing well. Planning for discharge today. Objective Vital Signs Vital Signs Date Time Temp Pulse Resp B/P (MAP) Pulse Ox O2 Delivery O2 Flow Rate FiO2 09/28/20 12:17 100 Room Air 09/28/20 08:25 77 111/74 09/28/20 06:29 97.5 20 97.5 09/26/20 15:00 2.0 Physical Exam ALEJA dressing changed. Incision benign. Labs Laboratory Tests Test 09/28/20 08:30 Hemoglobin 10.5 g/dL (13.0-17.5) Hematocrit 31.9 % (39.0-53.0) Mean Corpuscular Hemoglobin Concent 33 g/dL (31-37) Laboratory Tests Test 09/28/20 08:30 Hemoglobin 10.5 g/dL (13.0-17.5) Hematocrit 31.9 % (39.0-53.0) Mean Corpuscular Hemoglobin Concent 33 g/dL (31-37) Assessment Assessment POD #2 after TKA Plan Plan of Jail today. Oral pain meds. Aspirin BID for DVT prophylaxis. Follow up with my office next week. Home Health PT. Justicifation of Admission Dx: Justifications for Admission: Justification of Admission Dx: Yes MISHA MONET MD Sep 28, 2020 13:36
--- NOTE | 2020-09-28 13:39 | PDOC3 ---
Discharge Summary Visit Information Date of Admission: Sep 26, 2020 Date of Discharge: Sep 28, 2020 Final Diagnosis Osteoarthritis right knee. Aftercare after right total knee arthroplasty. Brief Hospital Course Allergies Allergies Coded Allergies Type Severity Reaction Last Updated Verified No Known Drug Allergies 09/26/20 No Vital Signs Vital Signs Date Time Temp Pulse Resp B/P (MAP) Pulse Ox O2 Delivery O2 Flow Rate FiO2 09/28/20 12:17 100 Room Air 09/28/20 08:25 77 111/74 09/28/20 06:29 97.5 20 97.5 09/26/20 15:00 2.0 Lab Results Laboratory Tests Test 09/28/20 08:30 Hemoglobin 10.5 g/dL (13.0-17.5) Hematocrit 31.9 % (39.0-53.0) Mean Corpuscular Hemoglobin Concent 33 g/dL (31-37) Laboratory Tests Test 09/28/20 08:30 Hemoglobin 10.5 g/dL (13.0-17.5) Hematocrit 31.9 % (39.0-53.0) Mean Corpuscular Hemoglobin Concent 33 g/dL (31-37) Brief Hospital Course 59 year old who presented with knee osteoarthritis, for elective total knee arthroplasty. The patient underwent total knee arthroplasty under general anesthesia the day of admission. Perioperative antibiotics and DVT prophylaxis were used. Postoperatively physical therapy and case management were consulted. The patient progressed and is stable for discharge. Discharge Information Condition at Discharge: Stable Follow Up: Weeks Disposition/Orders: D/C to Home w/ HH Scheduled Colchicine (Colcrys), 0.6 MG PO DAILY Lisinopril (Lisinopril), 20 MG PO DAILY, (Reported) Scheduled PRN Clonidine Hcl (Clonidine Hcl), 0.1 MG PO DAILY PRN for ELEVATED BP, SEE COMMENTS Hydrocodone Bit/Acetaminophen (Hydrocodone-Apap 5-325 ), 1-2 TAB PO Q4-6HRS PRN for PAIN Patient Instructions Patient Instructions Continue to weight bearing as tolerated with walker. Keep ALEJA dressing intact and dry. . Follow up with Dr. Jamison's office next week. Call for appointment unless already scheduled. Continue enteric coated aspirin 325 mg by mouth twice a day for 30 days to prevent blood clots. Justicifation of Admission Dx: Justifications for Admission: Justification of Admission Dx: Yes MISHA JAMISON MD Sep 28, 2020 13:39
--- NOTE | 2020-09-28 13:40 | SNU/HH DC ---
DISCHARGE WITH HOME HEALTH DISCHARGE INFORMATION: Discharge Date: Sep 28, 2020 Final Diagnosis: Osteoarthritis right knee. Aftercare after right total knee arthroplasty. Condition on Discharge: Stable CODE STATUS: Code Status: Full HOME HEALTH: Face to Face: I certify this patient is under my care and that I, or a nurse practitioner or physician's preschool assistant director working with me, had a face to face encounter that meets the physician face to face encounter requirements with this patient on 09/28/2020. Medical Complications: S/P Joint Replacement RN For Eval/Treatment: No Physical Therapy For: Evalulation/Treatment Occupational Therapy For: Evaluation/Treatment Pt Meets Homebound Status: Unsteady balance w/ amb,, Limited distance walking POST DISCHARGE ORDERS: Activity Instructions for Disc: Walk in house Weight Bearing Status after Di: No restrictions, Full weight bearing, As tolerated Bathing Instructions: Shower-keep dressing dry, No Tub Bath until see Wound/Incision Care: Ice to area for comfort, Keep wound/cast CDI, Keep wound elevated, Do not change dressing Other wound/incision instructi: Remove battery pack on 10/03 unscrew end and tape down FOLLOW-UP: Follow Up With: Follow up on 10/[address] Jamison ; if need to reschedule call [phone] Warfarin Follow UP: on asprin 325 mg (2) two times a day CERTIFICATION STATEMENT: Certification Statement: Certification Statement: Based on the above finding, I certify that this patient is confined to the home and needs intermittent chcf care, physical therapy and/or speech therapy, or continues to need occupational therapy.~ This patient is under my care, and I have initiated the establishment of the plan of care.~ This patient will be followed by myself or a community physician who will periodically review the plan of care. Home Meds Active Scripts Clonidine Hcl (CLONIDINE HCL) 0.1 Mg Tablet, 0.1 MG PO DAILY PRN for ELEVATED BP , SEE COMMENTS, #10 TAB Take 0.1mg tablet for systolic BP > 200 and or diastolic BP > 100 Prov:JOSLYN VEGA MD 10/22/19 Colchicine (COLCRYS) 0.6 Mg Tablet, 0.6 MG PO DAILY for 4 Days, #4 TAB 0 Refills Prov:NICOLÁS GONZALEZ MD 04/03/19 Hydrocodone Bit/Acetaminophen (HYDROCODONE-APAP 5-325 ) 1 Each Tablet, 1-2 TAB PO Q4-6HRS PRN for PAIN, #20 TAB 0 Refills Prov:YESSY ISRAEL MD 09/12/16 Reported Medications Lisinopril (LISINOPRIL) 20 Mg Tablet, 20 MG PO DAILY for FOR HYPERTENSION, #30 TAB 0 Refills 09/15/20 MISHA JAMISON MD Sep 28, 2020 13:40
--- NOTE | 2020-09-28 14:09 | PATHOLOGY ---
[facility] Accession Number: [id number] . 01 Material submitted: . PART A: knee - EXCISIVE SYNOVITIS, RIGHT KNEE. Modifiers: right PART B: knee - RIGHT KNEE BONE AND TISSUE. Modifiers: right . 01 Clinical history: . OA . 02 Diagnosis: A. 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 . B. Segments of bone and soft tissue, right total knee arthroplasty: - Advanced degenerative arthritis. - Focal crystalline deposits with granulomatous inflammatory reaction of dense fibroconnective tissues suggestive of gout. (JPM:nabor; 09/28/2020) QMS 09/28/2020 1056 Local . 02 Electronically signed: . Dusitn Machado MD, Pathologist NPI- [id number] . 01 Gross description: . A. The specimen is received in formalin, labeled "Santana Vazquez, excessive synovitis". The site is further designated under the operative procedure as, "right TKA". Received is a large amount of yellow-marie fibrous soft tissue admixed with lobulated tissue measuring 11.1 x 8.9 x 3.8 cm in aggregate dimensions. Sectioning reveals bright yellow, lobulated cut surfaces throughout. No distinct nodules or lesions are noted grossly. The specimen is submitted representatively in cassette A1. . B. The specimen is received in formalin, labeled "Santana Vazquez, right knee bone and tissue". Received are multiple segments of bone, including the tibial plateau, admixed with a slight amount of soft tissue measuring 10.5 x 9.9 x 3.2 cm in aggregate dimensions. Meniscus is absent. Sectioning through the soft tissue attached to the plateau reveals white-marie chalky deposits. The articular surfaces are pale marie and smooth to granular in appearance, and approximately 1/4 of the tibial plateau is eroded away with eburnation present. The specimen is submitted representatively in cassette B1, following decalcification. (CAA; 09/27/2020) QA/QA 09/27/2020 1106 Local . 02 Pathologist provided ICD-10: M65.9, M17.11 . 02 CPT . 523072, 923134, 339069 Specimen Comment: A courtesy copy of this report has been sent to [phone], [phone] Specimen Comment: [id number] Specimen Comment: Report sent to / DR VALLEJO Specimen Comment: A duplicate report has been generated due to demographic updates. Performed at: 01 [facility] [address] [id number] MD Josh Forman MD Phone: [phone] Performed at: 02 [facility] [address] [place], [place] [id number] MD Dustin Machado MD Phone: [phone]
[2020-09-28] MEDS ORDERED: OXYC1TAB15 PO (14:16)
[2020-09-28] MEDS ORDERED: ASPI325T11 PO (14:30)
[2020-09-28 15:15] VITALS: BP 112/60
--- NOTE | 2020-09-28 15:48 | NUR ---
Patient left around 1540 with his girlfriend. ALEJA with no signs of drainage noted so it was left intact at D/C. Foam dressing changed. Discharge education completed by this nurse, therapy, and the doctor prior to dismissal. IV discontinued earlier today. Script sent to the pharmacy per Dr Jamison. No concerns or complaints noted at discharge.
--- NOTE | 2020-10-04 12:09 | NUR ---
Cefazolin started 09/26 at 1607--stop time 1637 on 09/26 Cefazolin started 09/27 at 0312--stop time 0342 on 09/27
== END 2020-09-28 15:45 | disposition home health service (06) ==
LOC: SURG 06:39 → 4 SOUTHEST 12:01
PROVIDERS: ADMIT Orthopaedic Surgery; ATTEND Orthopaedic Surgery
DX: M17.11 Unilateral primary osteoarthritis, right knee (principal); Z20.828 Contact with and (suspected) exposure to other viral communicable diseases; I10 Essential (primary) hypertension; M65.9 Synovitis and tenosynovitis, unspecified; M67.20 Synovial hypertrophy, not elsewhere classified, unspecified site; M10.9 Gout, unspecified
CPT/HCPCS: 27447; 36415; 73560; 85014; 85018; 86850; 86900; 86901; 87426; 88305; 88311; 96361; 96365; 96366; 96375; 97116; 97150; 97162; 97166; 97530; 97535; A4461; C1713; C1769; C1776; G0378; G0379; J0171; J0690; J1100; J1885; J2250; J2270; J2405; J2704; J2710; J2795; J3010; J3260; J3370; J3490; J7030; J7120; U0003; J0360

== ENCOUNTER → 2020-12-13 | Outpatient (CLI) | payer BC ==
[~2020-12-13] MED LIST changes: -ACETAMINOPHEN 500 MG TABLET PO PRN; +AMLO-187 PO; +ASPI325T11 PO; +CHOL500050 PO; -LISI-334 PO; +LISI20TA18 PO; +OXYC1TAB15 PO; -TRANEXAMIC ACID 1,000 MG in IV NS 50ML -- 1ST BAG INJ ONE; -TV=100ml MORPHINE 5 MG, KETOROLAC 30 MG, ROPIVacaine 0.5% PF 60 ML, EPINEPH... INT ART ONE
== END ==
LOC: LAB 11:09
PROVIDERS: ATTEND Orthopaedic Surgery
DX: Z01.812 Encounter for preprocedural laboratory examination (principal); M70.21 Olecranon bursitis, right elbow; M25.421 Effusion, right elbow; Z20.822 Contact with and (suspected) exposure to COVID-19
CPT/HCPCS: U0003

== ENCOUNTER 2020-12-16 06:03 | Day surgery (SDC) | payer BC ==
[~2020-12-16] VITALS: Ht 167.6 cm; Wt 84.4 kg
[~2020-12-16 06:03] MED LIST changes: +HYDROmorphone 2 MG/ML VIAL IVP PRN; +IV RINGERS,LACTATED 1000ML 1,000 ML IV SCH; +MORPHINE SULFATE 2 MG/ML VIAL. IVP PRN; +PROCHLORPERAZINE 10 MG/2 ML VIAL. IVP PRN; +fentaNYL PF VIAL 100 MCG/2 ML VIAL IVP PRN
[2020-12-16] MEDS ORDERED: PROPOFOL 10 MG/ML (20ML) VIAL. IV ONE (06:48)
[2020-12-16] MEDS ORDERED: ONDANSETRON PF 4 MG/2 ML VIAL. ONE (06:48)
[2020-12-16] MEDS ORDERED: DEXAMETHASONE SOD PHOS 4 MG/ML VIAL ONE (06:48)
[2020-12-16] MEDS ORDERED: LIDOCAINE 2% PF 5 ML VIAL. ONE (06:48)
[2020-12-16] MEDS ORDERED: BUPIVACAINE-EPI 0.25% 30 ML VIAL KIT. ONE (07:01)
[2020-12-16] MEDS ORDERED: fentaNYL PF VIAL 100 MCG/2 ML VIAL ONE ×2 (07:10→07:48)
[2020-12-16] MEDS ORDERED: SEVOFLURANE 31 TO 60 MINUTES. IH ONE (07:58)
--- NOTE | 2020-12-16 08:27 | PDOC4 ---
Operative Note Operative Note Date of Procedure: December 16, 2020 Pre-Op Diagnosis: Olecranon bursitis right elbow Post-Op Diagnosis: Olecranon bursitis, right elbow M70.21 Procedure: right elbow, excision olecranon bursa CPT 56868 Surgeon: Misha Jamison MD Hand I Tube Bender: PEDRO De Leon Anesthesia: General EBL: 20 mL Specimens Obtained: swab cultures for aerobic, anaerobic and gram stain, olecranon bursa sent fresh for pathology and crystal examination Complications: none Drains: none Tourniquet: 10 minutes at 250 mm Hg Indications for Procedure: The patient is a 60-year-old man who presented to the office previously with olecranon bursitis findings, including a swollen noninfected olecranon bursa, and has had aspiration in the office previously, but bursitis has recurred. The findings in the office were consistent with olecranon bursitis, with moderate tenderness and pain, minimal loss of motion, good neurovascular function, and only slight pain at the extremes of motion. He was scheduled for elective surgical excision of the olecranon bursa due to failure of the nonoperative treatment. In the last 24 hours, the patient has developed increasing pain and swelling of the arm, and decreased function in the arm. I examined him this morning and he has inability to lift the arm, severe weakness, decreased motor function of the radial ulnar and median nerves but without ischemia, without loss of pulses, and without a focal neurologic deficit. The bursal swelling is present but without drainage or significant erythema. He denies neck pain. He did have an episode of neck pain about a week ago. The shoulder seems slightly swollen and perhaps there is lymph node involvement due to the inflammation at the elbow. I cannot find any focal findings to fully explain the severe loss of motion and this is unusual for patients with olecranon bursitis to have such arm dysfunction. We spoke about the risks benefits and alternatives of proceeding with the olecranon bursectomy. I reexamined him this morning and I do not find any additional pathology. He has a negative Spurling's test and no palpable masses at the shoulder. I recommended surgical excision of the bursa and then close follow-up in the office to see if those severe weakness symptoms resolve or whether further work- up is needed such as shoulder x-rays and/or MRI, cervical spine MRI, or additional work-up. We discussed the risks of recurrence of the bursa, scarring, infection, nerve injury, need for further surgeries or other potential surgical or anesthetic complications. Procedure in Detail: The patient was identified in the preoperative holding area. The correct right elbow was marked by me. The patient was taken to the operating room where general anesthetic was used. Preoperative antibiotics were given intravenously. A timeout procedure was performed. I examined the arm and shoulder carefully and find no masses. The shoulder is perhaps slightly stiff with passive range of motion, perhaps due to disuse from the olecranon bursitis. I do not palpate any specific lymphadenopathy. The shoulder is slightly warm and perhaps slightly swollen, and I would consider shoulder x-rays or MRI if the severe arm dysfunction persist after olecranon bursal excision. A tourniquet was used on the upper arm. The limb was prepared with sterile solution, and sterile drapes were applied. A longitudinal incision was made, slightly medial to the midline tip of the olecranon to prevent a painful scar over the bony prominence. Care was made not to injure the ulnar nerve medially. A prominent well-defined bursa was noted, with some white granular calcifications which could be from prior cortisone injection, or could be gout or pseudogout crystals. The volume of the olecranon bursa was approximately 10 mL. There was some white opaque cloudy fluid which escaped from the bursa and was swabbed for culture. That fluid could be pus or could be liquefied crystalline material. The bursa was excised circumferentially with a 15 blade scalpel down to bone and triceps tendon and sent as a specimen. Care was made not to injure the ulnar nerve. I used a rongeurs to remove any remaining bursa tissue from the distal triceps tendon and from the olecranon bone, down to healthy normal anatomic structures of olecranon bone and triceps tendon. There was no significant enthesophyte, and minimal triceps tendon involvement. Betadine lavage was used. Copious saline irrigation was used. Outer gloves were changed. The tourniquet was released. Bovie electrocautery was used for hemostasis. The skin edges were injected with 0.25% bupivacaine with epinephrine for additional hemostasis and for pain relief. I closed the potential space with #2-0 Vicryl, repairing the subcutaneous tissues to the triceps fascia and olecranon periosteum. My assistant speech language pathologist closed the subcutaneous layer with #3-0 Vicryl. He then approximated the skin with #3-0 STRATAFIX at my direction. A sterile dressing and a posterior splint and arm sling were applied. Needle and sponge counts were correct. There were no apparent complications. The patient returned to the recovery room in stable condition. MISHA JAMISON MD Dec 16, 2020 08:27
[2020-12-16] MEDS ORDERED: hydrALAZINE 20 MG/ML VIAL. ONE (08:52)
[2020-12-16] MEDS ORDERED: hydrALAZINE 20 MG/ML VIAL. IVP ONE (09:00)
[2020-12-16] MEDS ORDERED: oxyCODONE/APAP 5/325 1 TAB TABLET PO PRN ×2 (09:15)
[2020-12-16 09:29] VITALS: BP 154/78
[2020-12-16] MEDS ORDERED: OXYC-325 PO (09:56)
[2020-12-16] MEDS ORDERED: PROM25TA10 PO (09:57)
--- NOTE | 2020-12-20 14:07 | PATHOLOGY ---
[facility] Accession Number: [id number] . 01 Material submitted: . body - RIGHT OLECRANON BURSA . 01 Clinical history: . RIGHT OLECRANON BURSECTOMY . 02 Diagnosis: Segment of fibromembranous and fibroadipose tissue, right olecranon bursectomy: - Chronic and focal acute bursitis with fibrillary crystalline deposits with surrounding granulomatous inflammatory reaction consistent with gout. (JPM:nabor; 12/20/2020) S 12/20/2020 1049 Local . 02 Electronically signed: . Dustin Machado MD, Pathologist NPI- [id number] . 01 Gross description: . The specimen is received in alcohol, labeled "Santana Vazquez, right olecranon bursa". Received is a segment of pale marie indurated fibromembranous tissue measuring 3.1 x 2.7 x 1.0 cm in greatest dimensions. Sectioning reveals pale marie, homogenous cut surfaces with a slight amount of chalky deposits identified. The specimen is submitted representatively in cassette A1 and is loaded onto the processor into 70% alcohol and is not exposed to formalin. (CAA; 12/19/2020) QAC/QAC 12/19/2020 1518 Local . 02 Pathologist provided ICD-10: M70.21 . 02 CPT . 885039 Specimen Comment: A courtesy copy of this report has been sent to [phone] Specimen Comment: Report sent to Performed at: 01 [facility] [address], [place] [id number] MD Josh Forman MD Phone: [phone] Performed at: 02 [facility] [address] [place], [place] [id number] MD Dustin Machado MD Phone: [phone]
== END 2020-12-16 10:12 | disposition home or self-care (01) ==
LOC: SURG 06:03
PROVIDERS: ATTEND Orthopaedic Surgery
DX: M70.21 Olecranon bursitis, right elbow (principal); I10 Essential (primary) hypertension; M19.90 Unspecified osteoarthritis, unspecified site; M10.9 Gout, unspecified; Z72.89 Other problems related to lifestyle; Z79.899 Other long term (current) drug therapy; Z98.890 Other specified postprocedural states; Z82.49 Family history of ischemic heart disease and other diseases of the circulatory system; Z79.82 Long term (current) use of aspirin; Z88.8 Allergy status to other drugs, medicaments and biological substances
CPT/HCPCS: 24105; 87071; 87075; A4565; J0360; J0690; J1100; J2405; J2704; J3010